=== PATIENT | female | born 2005 | race Caucasian/White ===

== ENCOUNTER 2025-02-21 13:27 | Emergency (ER) | payer MEDICAID ==
[~2025-02-21] VITALS: Ht 157.5 cm; Wt 53.0 kg
[2025-02-21 13:34] VITALS: TEMP 98.3
[2025-02-21] MEDS: normal saline 1000ML IV soln IVB ONE (16:22)
[2025-02-21] MEDS: metoclopramide 5 mg/ml inj IV ONE (16:23)
[2025-02-21] MEDS: diphenhydrAMINE 50 mg/ml inj IV ONE (16:23)
[2025-02-21] MEDS: ketorolac trometh 30MG/ML vial 30 MG/ML VIAL IM ONE (16:23)
[2025-02-21 17:32] VITALS: BP 100/57; PULSE 79; RESP 17; O2SAT 100
== END 2025-02-21 17:35 | disposition home or self-care (01) ==
LOC: ER 13:28
DX: G43.909 Migraine, unspecified, not intractable, without status migrainosus (principal)
CPT/HCPCS: 96361; 96372; 96374; 96375; 99284; J1200; J1885; J2765; J7030

== ENCOUNTER 2025-08-22 10:38 | Emergency (ER) | payer MEDICAID ==
[~2025-08-22] VITALS: Ht 157.5 cm; Wt 52.7 kg
[2025-08-22 10:56] VITALS: TEMP 98.2
--- NOTE | 2025-08-22 11:00 | Physician Documentation ---
History of Present Illness Stated Complaint: ABD PAIN Primary Medical Doctor: None HPI 20 year old female experiencing sudden onset right lower quadrant abdominal pain which she states occurred yesterday when working out. Patient was concerned it could be a water cramp but she was unable to alleviate any of the pain it continued overnight she attempted to work out today and while running experienced nausea and 1 episode of vomiting. Patient has not experienced this type of pain for this lung in the past Medication Reconciliation Allergies: Coded Allergies: No Known Allergies (Unverified , 08/22/25) Past Medical History Past Medical History: No Pertinent History Past Surgical History: no surgical history Smoking Status: Never smoker Alcohol Use: None Drug Use: none Lives with: Family Lives In: Home Review of Systems All Other Systems at this time: Reviewed and Negative Gastrointestinal: Reports: see HPI Physical Exam Physical Exam General: Alert, no apparent distress. HEENT: moist mucous membranes. Neck: Full range of motion. Respiratory: No respiratory distress speaking in full sentences Chest: No accessory muscle use. Cardiovascular: Appears well perfused Gastrointestinal: Tenderness to the outermost portion of the right lower quadrant. Abdomen is soft bowel sounds present no masses present no flank pain Neurologic: Oriented x4. Psychiatric: Normal mood and affect. Skin: Normal color, warm and dry. No edema, no ecchymosis. Progress EKG/XRAY/CT/US/VASC/MRI CT : Impression Exam: CT CT ABDOMEN PELVIS History: Abdominal Pain COMPARISON: None Technique: Multidetector spiral CT of the abdomen and pelvis was performed from lung bases to pubic symphysis. Intravenous contrast was administered during this examination. Portal venous imaging was obtained. Axial, coronal and sagittal multiplanar reformats were performed by the technologist on a separate workstation. Radiation Dose : 1. Abdomen/Pelvis: CTDIvol 6.2 mGy, DLP 293 mGy*cm. CONTRAST: Type of contrast: Omnipaque 350 Contrast injected: 100 ml Findings: Lung Bases: No acute or significant lung base finding. Normal heart size. No pleural or pericardial effusion. Liver: The liver is normal in size. No focal lesions. Normal hepatic vascular enhancement. Gallbladder and Biliary Tree: Unremarkable Spleen: Unremarkable Pancreas: The pancreas is normal in appearance without focal lesions or abnormal enhancement. Adrenal Glands: Unremarkable Kidneys: No hydronephrosis. Bladder: Unremarkable Bowel: The stomach is grossly normal in appearance. Small bowel and colon are normal in caliber and distribution. Normal appendix is visualized in the right lower quadrant without findings of appendicitis. Ascites: Absent Lymphadenopathy: No mesenteric, retroperitoneal or periportal lymphadenopathy. Abdominal Wall and Mesentery: Unremarkable. Vasculature: The visualized abdominal aorta is normal in size and caliber. Abdominal and pelvic vessels demonstrate normal enhancement. Pelvic Organs: Unremarkable Musculoskeletal: No aggressive focal bony lesions, acute fractures or dislocation. IMPRESSION: 1. No acute abdominal or pelvic finding. 2. Normal appendix Radiation optimization: All CT scans at this facility use at least one of these dose optimization techniques: automated exposure control mA and/or kV adjustment per patient size (includes targeted exams where dose is matched to clinical indication) or iterative reconstruction. Medical Decision Making Findings Patient experienced sudden sharp tightness she referred to as potentially a cramp from running but it has not subsided since yesterday. 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 Patient's labs and vitals reassuring. CT of abdomen and pelvis unremarkable for any significant findings including pelvic organ abnormalities discussed differentials as possible muscle strain of the abdomen due to draining. Patient will follow up with primary care Departure Time of Disposition: 14:32 Disposition: 01 HOME / SELF CARE / HOMELESS Impression: Primary Impression: Abdominal pain Additional Impression: Muscle strain Discharge Instructions: Abdominal Pain (Nonspecific) Additional Instructions: Your vitals, labs, and CT scan were unremarkable for any significant findings. Follow up with primary care this could be an abdominal muscle strain Referrals: NO PRIMARY CARE PROVIDER (PCP) Education Educated: Patient Educated regarding: diagnosis, treatment, need for follow up Signature Scribe Signature: No scribe Attestation: The note accurately reflects work and decisions made by me.Tami SO 08/22/25 14:33 TAMI THOMPSON NP Aug 22, 2025 11:00
[2025-08-22 11:19] LABS: MEAN PLATELET VOLUME 7.6 FL (7.4-10.4); RED CELL DISTRIBUTION WIDTH 12.8 % (11.5-14.5)
[2025-08-22 11:39] LABS: CREATININE 0.95 MG/DL (0.40-0.90); TOTAL CARBON DIOXIDE 27.7 MMOL/L (24-32); eCRCL 75 ML/MIN; eGFR 75 ML/MIN
[2025-08-22 12:31] LABS: LEUKOCYTE ESTERASE ,URINE NEGATIVE (Neg); NITRITES, URINE NEGATIVE (Neg); OCCULT BLOOD,URINE NEGATIVE (Neg)
[2025-08-22 12:32] LABS: URINE HCG NEGATIVE (NEG)
[2025-08-22 12:36] LABS: UA COLLECTION TYPE CLN CATCH MIDSTREAM
[2025-08-22 12:59] LABS: BANDS% (MANUAL) 7.0 % (0-10); LYMPHOCYTES % (MANUAL) 52.0 % (21-51); MONOCYTES % (MANUAL) 9.0 % (2-12); NEUTROPHILS % (MANUAL) 32.0 % (42-75)
[2025-08-22 13:00] LABS: PLATELET ESTIMATE NORMAL
--- NOTE | 2025-08-22 13:34 | RADIOLOGY REPORT ---
Exam: CT CT ABDOMEN PELVIS History: Abdominal Pain COMPARISON: None Technique: Multidetector spiral CT of the abdomen and pelvis was performed from lung bases to pubic symphysis. Intravenous contrast was administered during this examination. Portal venous imaging was obtained. Axial, coronal and sagittal multiplanar reformats were performed by the technologist on a separate workstation. Radiation Dose : 1. Abdomen/Pelvis: CTDIvol 6.2 mGy, DLP 293 mGy*cm. CONTRAST: Type of contrast: Omnipaque 350 Contrast injected: 100 ml Findings: Lung Bases: No acute or significant lung base finding. Normal heart size. No pleural or pericardial effusion. Liver: The liver is normal in size. No focal lesions. Normal hepatic vascular enhancement. Gallbladder and Biliary Tree: Unremarkable Spleen: Unremarkable Pancreas: The pancreas is normal in appearance without focal lesions or abnormal enhancement. Adrenal Glands: Unremarkable Kidneys: No hydronephrosis. Bladder: Unremarkable Bowel: The stomach is grossly normal in appearance. Small bowel and colon are normal in caliber and distribution. Normal appendix is visualized in the right lower quadrant without findings of appendicitis. Ascites: Absent Lymphadenopathy: No mesenteric, retroperitoneal or periportal lymphadenopathy. Abdominal Wall and Mesentery: Unremarkable. Vasculature: The visualized abdominal aorta is normal in size and caliber. Abdominal and pelvic vessels demonstrate normal enhancement. Pelvic Organs: Unremarkable Musculoskeletal: No aggressive focal bony lesions, acute fractures or dislocation. IMPRESSION: 1. No acute abdominal or pelvic finding. 2. Normal appendix Radiation optimization: All CT scans at this facility use at least one of these dose optimization techniques: automated exposure control mA and/or kV adjustment per patient size (includes targeted exams where dose is matched to clinical indication) or iterative reconstruction.
[2025-08-22 14:31] VITALS: BP 101/63; PULSE 74; O2SAT 100
[2025-08-22 14:50] VITALS: RESP 15
== END 2025-08-22 14:52 | disposition home or self-care (01) ==
LOC: ER 10:39
DX: S39.011A Strain of muscle, fascia and tendon of abdomen, initial encounter (principal); R10.31 Right lower quadrant pain; X58.XXXA Exposure to other specified factors, initial encounter; Y93.89 Activity, other specified; Y92.89 Other specified places as the place of occurrence of the external cause; Y99.8 Other external cause status
CPT/HCPCS: 36415; 74176; 80048; 81003; 81025; 83690; 85007; 85025; 99284